=== PATIENT | female | born 1950 ===

== ENCOUNTER 2018-08-13 16:33 | Inpatient (IN) ==
[2018-08-13] MEDS ORDERED: MAGNESIUM HYDROXIDE SUSP 30 ML UDCUP PO PRN (18:01)
[2018-08-13] MEDS ORDERED: PROMETHAZINE 25 MG/1 ML VIAL IM PRN (18:01)
[2018-08-13] MEDS ORDERED: ACETAMINOPHEN 325 MG TABLET PO PRN ×2 (18:01)
[2018-08-13] MEDS ORDERED: NITROGLYCERIN SL 0.4 MG TABLET SL PRN (18:01)
[2018-08-13] MEDS ORDERED: POTASSIUM CHLORIDE 20 MEQ TABLET PO PRN ×2 (18:01)
[2018-08-13] MEDS ORDERED: MORPHINE 4 MG/1 ML VIAL IV PRN ×2 (18:01)
[2018-08-13] MEDS ORDERED: MAGNESIUM SULF RIDER 4 GM in PREMIX 1 EACH IV PRN (18:01)
[2018-08-13] MEDS ORDERED: NICOTINE 21 MG/24 HR PATCH TRANSDERM PRN (18:01)
[2018-08-13] MEDS ORDERED: oxyCODONE/ACETAMINOPHEN 5-325 MG TABLET PO PRN (18:01)
[2018-08-13] MEDS ORDERED: diphenhydrAMINE CAP 25 MG CAPSULE PO PRN (18:01)
[2018-08-13] MEDS ORDERED: MAGNESIUM SULF RIDER 2 GM in PREMIX 1 EACH IV PRN (18:01)
[2018-08-13] MEDS ORDERED: INSULIN REGULAR 100 UNIT/ML SUBCUT ONE (18:01)
[2018-08-13] MEDS ORDERED: traMADol 50 MG TABLET PO PRN (18:01)
[2018-08-13] MEDS ORDERED: BISACODYL 5 MG TABLET PO PRN (18:01)
[2018-08-13] MEDS ORDERED: guaiFENesin/DM ER 600-30 MG TABLET PO PRN (18:01)
[2018-08-13] MEDS ORDERED: ONDANSETRON 4 MG/2 ML VIAL IV PRN ×2 (18:01)
[2018-08-13] MEDS ORDERED: ALUM/MAG/SIMETH/LIDO VISC 1:1 30 ML BOTTLE PO PRN (18:01)
[2018-08-13] MEDS ORDERED: ZALEPLON 5 MG CAPSULE PO PRN (18:01)
[2018-08-13] MEDS ORDERED: DEXTROSE 50% 25 GM/50 ML VIAL IV PRN ×2 (18:27→20:48)
[2018-08-13] MEDS ORDERED: GLUCAGON 1 MG VIAL IM PRN ×2 (18:27→20:48)
[2018-08-13] MEDS ORDERED: SODIUM CHLORIDE 0.9% 1,000 ML IV SCH (18:30)
[2018-08-13] MEDS: SODIUM CHLORIDE 0.45% 1,000 ML IV SCH (18:32)
[2018-08-13] MEDS: INSULIN REGULAR 100 UNIT/ML SUBCUT SCH ×2 (18:41→23:35)
[2018-08-13] MEDS ORDERED: CLOPIDOGREL 75 MG TABLET PO ONE (18:55)
[2018-08-13] MEDS ORDERED: hydrALAZINE 20 MG/1 ML VIAL IV PRN (19:25)
[2018-08-13] MEDS ORDERED: CLOPIDOGREL 300 MG TABLET PO ONE (19:25)
[2018-08-13 19:31] LABS: Risk Ratio 6.04; Thyroid Stimulating Hormone 2.16 uIU/ml (0.358-3.74); VLDL CHOLESTEROL 36.6 MG/DL
[2018-08-13] MEDS ORDERED: ATORVASTATIN 20 MG TABLET PO SCH (21:00)
[2018-08-13] MEDS ORDERED: INSULIN GLARGINE 100 UNIT/ML SUBCUT SCH (21:00)
[2018-08-13] MEDS: cefTRIAXone 1,000 MG in SYRINGE 1 EACH IV SCH (21:16)
[2018-08-13] MEDS: ATORVASTATIN 80 MG TABLET PO SCH (21:17)
[2018-08-13] MEDS: hydrALAZINE 10 MG TABLET PO SCH (21:17)
[2018-08-13] MEDS: CARVEDILOL 3.125 MG TABLET PO SCH (21:17)
[2018-08-13] MEDS: FAMOTIDINE 20 MG TABLET PO SCH (21:17)
[2018-08-14 04:59] LABS: Basophils % 0.2 % (0.0-0.8); Eosinophils # 0.1 10*3/uL (0.0-0.87); Eosinophils % 1.5 % (0.00-10.9); Hematocrit 32.9 VOL% (35.7-47.0); Hemoglobin 11.1 GM/DL (12.0-16.0); Immature Granulocytes % 0.4 %; Immature Granulocytes Absolute 0.03 #; Lymphocytes # 0.8 10*3/uL (1.4-4.0); Lymphocytes % 9.1 % (21.3-54.2); Mean Corpuscular HGB Conc 33.7 GM/DL (32-36); Mean Corpuscular Volume 91.1 FL (87-102); Mean Platelet Volume 10.5 FL (9.6-12.0); Monocytes % 11.2 % (1.7-12.7); Neutrophils % 77.6 % (38.7-73.9); Platelet Count 303 T/CUMM (130-400); Red Blood Count 3.61 MC/CUMM (3.8-5.5); White Blood Count 8.2 T/CUMM (4-12)
[2018-08-14 05:03] LABS: Alanine Aminotransferase 16 U/L (13-56); Albumin 1.8 G/DL (3.4-5.0); Alkaline Phosphatase 99 U/L (45-117); Aspartate Amino Transferase 44 U/L (0-37); Bilirubin,Total < 0.39 MG/DL (0.2-1.0); Blood Urea Nitrogen 33 MG/DL (7-18); Calcium 7.9 MG/DL (8.5-10.1); Total Protein 5.6 G/DL (6.4-8.3)
[2018-08-14] MEDS: INSULIN REGULAR 100 UNIT/ML SUBCUT SCH ×4 (05:03→20:43)
[2018-08-14 05:23] LABS: Glucose 47 MG/DL (74-106)
[2018-08-14] MEDS: FAMOTIDINE 20 MG TABLET PO SCH ×2 (08:36→20:41)
[2018-08-14] MEDS: ASPIRIN EC 81 MG TABLET PO SCH (08:36)
[2018-08-14] MEDS: CLOPIDOGREL 75 MG TABLET PO SCH (08:36)
[2018-08-14] MEDS: SODIUM CHLORIDE 0.45% 1,000 ML IV SCH ×2 (08:36→20:40)
[2018-08-14] MEDS: ISOSORBIDE MONONITRATE 30 MG TABLET PO SCH (08:37)
[2018-08-14] MEDS: hydrALAZINE 10 MG TABLET PO SCH ×3 (08:37→20:42)
[2018-08-14] MEDS: CARVEDILOL 3.125 MG TABLET PO SCH ×2 (08:37→20:42)
[2018-08-14] MEDS: POTASSIUM CHLORIDE 20 MEQ TABLET PO SCH ×2 (10:03→20:42)
[2018-08-14 10:50] LABS: Apearance,Urine Slightly Hazy (Clear); Bacteria,Urine Occasional /HPF (Few); Bilirubin,Urine Negative (Negative); Blood, Urine Small mg/dL (Negative); Glucose,Urine (UA) >=500 mg/dL (Negative); Ketones,Urine Negative (Negative); Mucus,Urine Occasional /LPF (Occasional); Nitrite,Urine Negative (Negative); Protein,Urine 100 MG/DL; RBC,Urine 3 /HPF (0-4); Squamous Epithelial Cell,Urine Occasional /HPF (0-10); Urine Color Yellow (Yellow); Urine Specific Gravity 1.017 (1.001-1.035); Urine Urobilinogen < 2.0 EU/DL (0.2-1.0); WBC,Urine 99 /HPF (0-6)
[2018-08-14] MEDS ORDERED: GLUCAGON 1 MG VIAL IM PRN (14:44)
[2018-08-14] MEDS ORDERED: DEXTROSE 50% 25 GM/50 ML VIAL IV PRN (14:44)
[2018-08-14] MEDS: cefTRIAXone 1,000 MG in SYRINGE 1 EACH IV SCH (20:41)
[2018-08-14] MEDS: ATORVASTATIN 80 MG TABLET PO SCH (20:41)
[2018-08-15 04:36] LABS: Basophils % 0.2 % (0.0-0.8); Eosinophils % 0.3 % (0.00-10.9); Hematocrit 32.8 VOL% (35.7-47.0); Hemoglobin 10.6 GM/DL (12.0-16.0); Immature Granulocytes % 0.9 %; Immature Granulocytes Absolute 0.13 #; Lymphocytes # 0.7 10*3/uL (1.4-4.0); Lymphocytes % 5.1 % (21.3-54.2); Mean Corpuscular HGB Conc 32.3 GM/DL (32-36); Mean Platelet Volume 10.1 FL (9.6-12.0); Monocytes % 10.5 % (1.7-12.7); Platelet Count 297 T/CUMM (130-400); Red Blood Count 3.49 MC/CUMM (3.8-5.5); Red Cell Distribution Width 13.3 % (9.3-17.3); White Blood Count 14.4 T/CUMM (4-12)
[2018-08-15 05:01] LABS: Albumin 1.7 G/DL (3.4-5.0); Bilirubin,Total 0.4 MG/DL (0.2-1.0); Calcium 7.7 MG/DL (8.5-10.1); Osmolality,Calculated 280.7 MOS/KG (273-304); Total Protein 5.7 G/DL (6.4-8.3)
[2018-08-15] MEDS ORDERED: glipiZIDE 5 MG TABLET PO SCH (07:30)
[2018-08-15] MEDS: INSULIN REGULAR 100 UNIT/ML SUBCUT SCH ×4 (08:09→21:16)
[2018-08-15] MEDS: CLOPIDOGREL 75 MG TABLET PO SCH (09:08)
[2018-08-15] MEDS: CARVEDILOL 3.125 MG TABLET PO SCH ×2 (09:08→21:16)
[2018-08-15] MEDS: FAMOTIDINE 20 MG TABLET PO SCH ×2 (09:08→21:20)
[2018-08-15] MEDS: POTASSIUM CHLORIDE 20 MEQ TABLET PO SCH ×2 (09:08→21:19)
[2018-08-15] MEDS: ISOSORBIDE MONONITRATE 30 MG TABLET PO SCH (09:08)
[2018-08-15] MEDS: hydrALAZINE 10 MG TABLET PO SCH ×3 (09:08→21:16)
[2018-08-15] MEDS: ASPIRIN EC 81 MG TABLET PO SCH (09:09)
[2018-08-15] MEDS: SODIUM CHLORIDE 0.45% 1,000 ML IV SCH ×2 (09:57→23:56)
[2018-08-15] MEDS: ATORVASTATIN 80 MG TABLET PO SCH (21:20)
[2018-08-15] MEDS: cefTRIAXone 1,000 MG in SYRINGE 1 EACH IV SCH (21:20)
[2018-08-16 03:42] LABS: Basophils % 0.2 % (0.0-0.8); Eosinophils # 0.1 10*3/uL (0.0-0.87); Eosinophils % 0.8 % (0.00-10.9); Hematocrit 27.3 VOL% (35.7-47.0); Hemoglobin 8.7 GM/DL (12.0-16.0); Immature Granulocytes % 0.4 %; Immature Granulocytes Absolute 0.06 #; Lymphocytes # 1.4 10*3/uL (1.4-4.0); Lymphocytes % 10.2 % (21.3-54.2); Mean Corpuscular HGB Conc 31.9 GM/DL (32-36); Mean Corpuscular Volume 96.1 FL (87-102); Monocytes % 9.1 % (1.7-12.7); Neutrophils % 79.3 % (38.7-73.9); Platelet Count 266 T/CUMM (130-400); Red Blood Count 2.84 MC/CUMM (3.8-5.5); Red Cell Distribution Width 13.5 % (9.3-17.3); White Blood Count 13.7 T/CUMM (4-12)
[2018-08-16 04:02] LABS: Alanine Aminotransferase 13 U/L (13-56); Albumin 1.7 G/DL (3.4-5.0); Alkaline Phosphatase 109 U/L (45-117); Aspartate Amino Transferase 42 U/L (0-37); Bilirubin,Total < 0.39 MG/DL (0.2-1.0); Blood Urea Nitrogen 38 MG/DL (7-18); Calcium 7.6 MG/DL (8.5-10.1); Glucose 55 MG/DL (74-106); Osmolality,Calculated 279.8 MOS/KG (273-304); Total Protein 5.3 G/DL (6.4-8.3)
[2018-08-16] MEDS: INSULIN REGULAR 100 UNIT/ML SUBCUT SCH (07:38)
[2018-08-16] MEDS ORDERED: hydrALAZINE 10 MG TABLET PO SCH (09:00)
[2018-08-16] MEDS: ISOSORBIDE MONONITRATE 30 MG TABLET PO SCH (09:44)
[2018-08-16] MEDS: ASPIRIN EC 81 MG TABLET PO SCH (09:44)
[2018-08-16] MEDS: RIVAROXABAN 20 MG TABLET PO SCH (09:44)
[2018-08-16] MEDS: CARVEDILOL 3.125 MG TABLET PO SCH ×2 (09:45→21:47)
[2018-08-16] MEDS: FAMOTIDINE 20 MG TABLET PO SCH ×2 (09:45→21:33)
[2018-08-16] MEDS: POTASSIUM CHLORIDE 20 MEQ TABLET PO SCH ×2 (09:47→21:34)
[2018-08-16] MEDS: SODIUM CHLORIDE 0.45% 1,000 ML IV SCH (16:37)
[2018-08-16] MEDS: cefTRIAXone 1,000 MG in SYRINGE 1 EACH IV SCH (21:23)
[2018-08-16] MEDS: ATORVASTATIN 80 MG TABLET PO SCH (21:32)
[2018-08-17 04:42] LABS: Basophils % 0.5 % (0.0-0.8); Eosinophils # 0.2 10*3/uL (0.0-0.87); Eosinophils % 2.3 % (0.00-10.9); Hematocrit 27.7 VOL% (35.7-47.0); Hemoglobin 8.6 GM/DL (12.0-16.0); Immature Granulocytes % 0.5 %; Immature Granulocytes Absolute 0.04 #; Lymphocytes # 1.5 10*3/uL (1.4-4.0); Lymphocytes % 16.8 % (21.3-54.2); Mean Corpuscular Volume 98.9 FL (87-102); Mean Platelet Volume 10.3 FL (9.6-12.0); Monocytes % 9.1 % (1.7-12.7); Neutrophils % 70.8 % (38.7-73.9); Platelet Count 261 T/CUMM (130-400); Red Cell Distribution Width 13.4 % (9.3-17.3); White Blood Count 8.7 T/CUMM (4-12)
[2018-08-17 04:54] LABS: Alanine Aminotransferase 17 U/L (13-56); Albumin 1.5 G/DL (3.4-5.0); Alkaline Phosphatase 140 U/L (45-117); Aspartate Amino Transferase 44 U/L (0-37); Bilirubin,Total < 0.39 MG/DL (0.2-1.0); Blood Urea Nitrogen 39 MG/DL (7-18); Calcium 7.6 MG/DL (8.5-10.1); Glucose 115 MG/DL (74-106); Osmolality,Calculated 275.4 MOS/KG (273-304); Total Protein 5.4 G/DL (6.4-8.3)
[2018-08-17] MEDS ORDERED: SODIUM POLYSTYRENE SULFATE 15 GM/60 ML BOTTLE PO ONE (06:42)
[2018-08-17] MEDS: RIVAROXABAN 20 MG TABLET PO SCH (07:51)
[2018-08-17] MEDS: SODIUM CHLORIDE 0.45% 1,000 ML IV SCH (07:59)
[2018-08-17] MEDS: POTASSIUM CHLORIDE 20 MEQ TABLET PO SCH (09:23)
[2018-08-17] MEDS: CARVEDILOL 3.125 MG TABLET PO SCH ×2 (09:44→21:39)
[2018-08-17] MEDS: ISOSORBIDE MONONITRATE 30 MG TABLET PO SCH (09:44)
[2018-08-17] MEDS: ASPIRIN EC 81 MG TABLET PO SCH (09:44)
[2018-08-17] MEDS: FAMOTIDINE 20 MG TABLET PO SCH ×2 (09:44→21:39)
[2018-08-17] MEDS: SODIUM BICARB INJ 50 MEQ in DEXTROSE 5% NACL 0.45% 1,000 ML IV SCH ×2 (10:27→21:39)
[2018-08-17] MEDS: INSULIN REGULAR 100 UNIT/ML SUBCUT SCH (21:38)
[2018-08-17] MEDS: ATORVASTATIN 80 MG TABLET PO SCH (21:39)
[2018-08-18] MEDS: SODIUM BICARB INJ 50 MEQ in DEXTROSE 5% NACL 0.45% 1,000 ML IV SCH (07:00)
[2018-08-18] MEDS: INSULIN REGULAR 100 UNIT/ML SUBCUT SCH ×3 (09:10→16:55)
[2018-08-18] MEDS: ASPIRIN EC 81 MG TABLET PO SCH (09:10)
[2018-08-18] MEDS: FAMOTIDINE 20 MG TABLET PO SCH ×2 (09:11→20:55)
[2018-08-18] MEDS: CARVEDILOL 3.125 MG TABLET PO SCH ×2 (09:11→20:55)
[2018-08-18] MEDS: RIVAROXABAN 20 MG TABLET PO SCH (09:11)
[2018-08-18] MEDS: ISOSORBIDE MONONITRATE 30 MG TABLET PO SCH (09:11)
[2018-08-18 10:54] LABS: Calcium 7.4 MG/DL (8.5-10.1); Osmolality,Calculated 286.8 MOS/KG (273-304)
[2018-08-18] MEDS: ATORVASTATIN 80 MG TABLET PO SCH (20:55)
[2018-08-19] MEDS: INSULIN REGULAR 100 UNIT/ML SUBCUT SCH ×5 (00:17→21:48)
[2018-08-19] MEDS: SODIUM BICARB INJ 50 MEQ in DEXTROSE 5% NACL 0.45% 1,000 ML IV SCH ×2 (00:31→15:47)
[2018-08-19] MEDS ORDERED: ZIPRASIDONE 20 MG/1 ML VIAL IM ONE (00:32)
[2018-08-19 05:21] LABS: Basophils % 0.4 % (0.0-0.8); Eosinophils # 0.1 10*3/uL (0.0-0.87); Eosinophils % 1.6 % (0.00-10.9); Hematocrit 27.6 VOL% (35.7-47.0); Immature Granulocytes % 0.5 %; Immature Granulocytes Absolute 0.04 #; Lymphocytes # 1.2 10*3/uL (1.4-4.0); Lymphocytes % 15.7 % (21.3-54.2); Mean Corpuscular HGB Conc 32.6 GM/DL (32-36); Mean Corpuscular Volume 95.2 FL (87-102); Neutrophils % 70.8 % (38.7-73.9); Platelet Count 364 T/CUMM (130-400); White Blood Count 7.5 T/CUMM (4-12)
[2018-08-19 05:31] LABS: Calcium 7.7 MG/DL (8.5-10.1); Calcium 7.8 MG/DL (8.5-10.1); Osmolality,Calculated 285.7 MOS/KG (273-304)
[2018-08-19] MEDS ORDERED: glipiZIDE 5 MG TABLET PO SCH (09:00)
[2018-08-19] MEDS ORDERED: GLIMEPIRIDE 2 MG TABLET PO SCH (09:00)
[2018-08-19] MEDS: ASPIRIN EC 81 MG TABLET PO SCH (09:17)
[2018-08-19] MEDS: RIVAROXABAN 20 MG TABLET PO SCH (09:18)
[2018-08-19] MEDS: CARVEDILOL 3.125 MG TABLET PO SCH ×2 (09:18→21:46)
[2018-08-19] MEDS: ISOSORBIDE MONONITRATE 30 MG TABLET PO SCH (09:18)
[2018-08-19] MEDS: FAMOTIDINE 20 MG TABLET PO SCH (09:18)
[2018-08-19] MEDS: CYPROHEPTADINE 4 MG TABLET PO SCH ×2 (12:14→21:46)
[2018-08-19] MEDS: COENZYME Q10 100 MG CAPSULE PO SCH ×2 (12:14→21:48)
[2018-08-19] MEDS: ATORVASTATIN 80 MG TABLET PO SCH (21:46)
[2018-08-20 06:39] LABS: Calcium 7.5 MG/DL (8.5-10.1); Osmolality,Calculated 287.3 MOS/KG (273-304)
[2018-08-20] MEDS: INSULIN REGULAR 100 UNIT/ML SUBCUT SCH ×4 (08:36→22:44)
[2018-08-20] MEDS: RIVAROXABAN 20 MG TABLET PO SCH (09:05)
[2018-08-20] MEDS: ASPIRIN EC 81 MG TABLET PO SCH (09:05)
[2018-08-20] MEDS: COENZYME Q10 100 MG CAPSULE PO SCH ×2 (09:05→22:44)
[2018-08-20] MEDS: CYPROHEPTADINE 4 MG TABLET PO SCH ×2 (09:05→22:44)
[2018-08-20] MEDS: CARVEDILOL 3.125 MG TABLET PO SCH ×2 (09:06→22:44)
[2018-08-20] MEDS: ISOSORBIDE MONONITRATE 30 MG TABLET PO SCH (09:06)
[2018-08-20] MEDS: FAMOTIDINE 20 MG TABLET PO SCH (09:06)
[2018-08-20] MEDS: ATORVASTATIN 80 MG TABLET PO SCH (22:44)
[2018-08-21] MEDS: INSULIN REGULAR 100 UNIT/ML SUBCUT SCH ×4 (08:23→21:11)
[2018-08-21] MEDS: COENZYME Q10 100 MG CAPSULE PO SCH ×2 (08:32→21:08)
[2018-08-21] MEDS: ASPIRIN EC 81 MG TABLET PO SCH (08:32)
[2018-08-21] MEDS: CARVEDILOL 3.125 MG TABLET PO SCH ×2 (08:32→21:08)
[2018-08-21] MEDS: FAMOTIDINE 20 MG TABLET PO SCH (08:32)
[2018-08-21] MEDS: CYPROHEPTADINE 4 MG TABLET PO SCH ×2 (08:32→21:08)
[2018-08-21] MEDS: ISOSORBIDE MONONITRATE 30 MG TABLET PO SCH (08:32)
[2018-08-21] MEDS: RIVAROXABAN 20 MG TABLET PO SCH (08:32)
[2018-08-21] MEDS: ATORVASTATIN 80 MG TABLET PO SCH (21:08)
[2018-08-22 04:35] LABS: Calcium 7.6 MG/DL (8.5-10.1); Osmolality,Calculated 289.4 MOS/KG (273-304)
[2018-08-22] MEDS: ISOSORBIDE MONONITRATE 30 MG TABLET PO SCH (09:57)
[2018-08-22] MEDS: RIVAROXABAN 20 MG TABLET PO SCH (09:57)
[2018-08-22] MEDS: COENZYME Q10 100 MG CAPSULE PO SCH (09:57)
[2018-08-22] MEDS: ASPIRIN EC 81 MG TABLET PO SCH (09:57)
[2018-08-22] MEDS: CYPROHEPTADINE 4 MG TABLET PO SCH (09:57)
[2018-08-22] MEDS: FAMOTIDINE 20 MG TABLET PO SCH (09:57)
[2018-08-22] MEDS: CARVEDILOL 3.125 MG TABLET PO SCH (09:57)
[2018-08-22] MEDS: INSULIN REGULAR 100 UNIT/ML SUBCUT SCH ×2 (09:58→12:09)
[2018-08-22 12:29] VITALS: BP 104/58
== END 2018-08-22 12:50 | DRG 64 ==
LOC: N.TELES 17:44 → SUATTDRO 17:44
PROVIDERS: ADMIT Internal Medicine; ATTEND Internal Medicine

== ENCOUNTER 2018-10-04 13:30 | Inpatient (IN) ==
[2018-10-04] MEDS ORDERED: LACTULOSE 20 GM/30 ML UDCUP PO PRN (20:34)
[2018-10-04] MEDS ORDERED: ONDANSETRON 4 MG/2 ML VIAL IV PRN (20:34)
[2018-10-04] MEDS ORDERED: ZALEPLON 5 MG CAPSULE PO PRN (20:34)
[2018-10-04] MEDS ORDERED: ACETAMINOPHEN 325 MG TABLET PO PRN (20:34)
[2018-10-04] MEDS ORDERED: BISACODYL 5 MG TABLET PO PRN (20:34)
[2018-10-04 20:36] LABS: Basophils % 0.3 % (0.0-0.8); Eosinophils # 0.1 10*3/uL (0.0-0.87); Eosinophils % 1.4 % (0.00-10.9); Hematocrit 29.5 VOL% (35.7-47.0); Hemoglobin 9.7 GM/DL (12.0-16.0); Immature Granulocytes % 0.4 %; Immature Granulocytes Absolute 0.03 #; Lymphocytes # 1.2 10*3/uL (1.4-4.0); Lymphocytes % 16.9 % (21.3-54.2); Mean Corpuscular HGB Conc 32.9 GM/DL (32-36); Mean Corpuscular Volume 93.7 FL (87-102); Mean Platelet Volume 10.1 FL (9.6-12.0); Monocytes % 8.5 % (1.7-12.7); Neutrophils % 72.5 % (38.7-73.9); Platelet Count 246 T/CUMM (130-400); Red Blood Count 3.15 MC/CUMM (3.8-5.5); Red Cell Distribution Width 15.9 % (9.3-17.3); White Blood Count 7.3 T/CUMM (4-12)
[2018-10-04 21:04] LABS: Calcium 7.8 MG/DL (8.5-10.1); Osmolality,Calculated 292.6 MOS/KG (273-304)
[2018-10-04] MEDS: SODIUM CHLORIDE 0.9% 1,000 ML IV SCH (21:17)
[2018-10-04] MEDS: CYPROHEPTADINE 4 MG TABLET PO SCH (22:21)
[2018-10-04] MEDS: CARVEDILOL 3.125 MG TABLET PO SCH (22:21)
[2018-10-04] MEDS: ATORVASTATIN 80 MG TABLET PO SCH (22:21)
[2018-10-05] MEDS: COENZYME Q10 100 MG CAPSULE PO SCH ×3 (00:01→22:43)
[2018-10-05] MEDS ORDERED: POTASSIUM CHLORIDE 20 MEQ TABLET PO ONE (06:06)
[2018-10-05 06:43] LABS: Basophils % 0.3 % (0.0-0.8); Eosinophils # 0.2 10*3/uL (0.0-0.87); Hematocrit 29.5 VOL% (35.7-47.0); Hemoglobin 9.5 GM/DL (12.0-16.0); Immature Granulocytes % 0.2 %; Immature Granulocytes Absolute 0.01 #; Lymphocytes % 29.4 % (21.3-54.2); Mean Corpuscular HGB Conc 32.2 GM/DL (32-36); Mean Corpuscular Volume 93.7 FL (87-102); Mean Platelet Volume 10.1 FL (9.6-12.0); Monocytes % 10.8 % (1.7-12.7); Neutrophils % 56.3 % (38.7-73.9); Platelet Count 241 T/CUMM (130-400); Red Blood Count 3.15 MC/CUMM (3.8-5.5); Red Cell Distribution Width 15.9 % (9.3-17.3); White Blood Count 6.7 T/CUMM (4-12)
[2018-10-05 07:06] LABS: Calcium 7.9 MG/DL (8.5-10.1); Osmolality,Calculated 291.4 MOS/KG (273-304)
[2018-10-05] MEDS: CARVEDILOL 3.125 MG TABLET PO SCH ×2 (08:33→16:38)
[2018-10-05] MEDS: FAMOTIDINE 20 MG TABLET PO SCH (08:33)
[2018-10-05] MEDS: ASPIRIN EC 81 MG TABLET PO SCH (08:34)
[2018-10-05] MEDS: CYPROHEPTADINE 4 MG TABLET PO SCH ×2 (08:34→22:43)
[2018-10-05] MEDS ORDERED: POTASSIUM CHLORIDE 20 MEQ TABLET PO SCH ×2 (09:00→21:00)
[2018-10-05] MEDS ORDERED: ISOSORBIDE MONONITRATE 30 MG TABLET PO SCH (09:00)
[2018-10-05] MEDS ORDERED: diphenhydrAMINE CAP 25 MG CAPSULE PO ONE (10:06)
[2018-10-05] MEDS ORDERED: DIAZEPAM 5 MG TABLET PO ONE (10:06)
[2018-10-05] MEDS ORDERED: POTASSIUM CHLORIDE RIDER 10 MEQ in PREMIX 1 EACH IV PRN (10:06)
[2018-10-05] MEDS ORDERED: LIDOCAINE 1% 20 ML VIAL ONE (10:28)
[2018-10-05] MEDS ORDERED: HEPARIN/NACL 0.9% 2 UNITS/ML 1,000 ML IV ONE (10:28)
[2018-10-05] MEDS: SODIUM CHLORIDE 0.9% 1,000 ML IV SCH (10:29)
[2018-10-05] MEDS: POTASSIUM CHLORIDE RIDER 10 MEQ in PREMIX 1 EACH IV SCH ×2 (10:30→12:31)
[2018-10-05] MEDS ORDERED: MIDAZOLAM 2 MG/2 ML VIAL ONE (10:55)
[2018-10-05] MEDS ORDERED: fentaNYL 100 MCG/2 ML VIAL ONE (10:55)
[2018-10-05] MEDS ORDERED: BIVALIRUDIN 250 MG VIAL IV ONE (11:16)
[2018-10-05] MEDS ORDERED: NITROGLYCERIN DRIP 0 MG/0 ML BOTTLE IV ONE (11:39)
[2018-10-05] MEDS ORDERED: NITROGLYCERIN DRIP 50 MG/250 ML BOTTLE IV ONE (11:40)
[2018-10-05] MEDS ORDERED: HEPARIN/NACL 0.9% 2 UNITS/ML 500 ML IV ONE (11:51)
[2018-10-05] MEDS ORDERED: TICAGRELOR 90 MG TABLET ONE (12:16)
[2018-10-05] MEDS ORDERED: DEXTROSE 50% 25 GM/50 ML VIAL IV PRN (12:20)
[2018-10-05] MEDS ORDERED: GLUCAGON 1 MG VIAL IM PRN (12:20)
[2018-10-05] MEDS ORDERED: NITROGLYCERIN SL 0.4 MG TABLET SL PRN (12:21)
[2018-10-05] MEDS ORDERED: POTASSIUM CHLORIDE RIDER 100 ML IV ONE (12:27)
[2018-10-05] MEDS: INSULIN LISPRO 100 UNIT/ML SUBCUT SCH ×2 (16:37→22:44)
[2018-10-05] MEDS ORDERED: hydrALAZINE 20 MG/1 ML VIAL IV PRN (16:39)
[2018-10-05] MEDS ORDERED: POTASSIUM CHLORIDE 10 MEQ TABLET PO SCH (22:30)
[2018-10-05] MEDS: hydrALAZINE 25 MG TABLET PO SCH (22:42)
[2018-10-05] MEDS: TICAGRELOR 90 MG TABLET PO SCH (22:43)
[2018-10-05] MEDS: ATORVASTATIN 80 MG TABLET PO SCH (22:43)
[2018-10-05] MEDS: MAGNESIUM OXIDE 400 MG TABLET PO SCH (22:43)
[2018-10-06 06:19] LABS: Basophils % 0.2 % (0.0-0.8); Eosinophils # 0.1 10*3/uL (0.0-0.87); Eosinophils % 1.6 % (0.00-10.9); Hemoglobin 8.7 GM/DL (12.0-16.0); Immature Granulocytes % 0.5 %; Immature Granulocytes Absolute 0.04 #; Lymphocytes # 0.6 10*3/uL (1.4-4.0); Lymphocytes % 7.1 % (21.3-54.2); Mean Corpuscular HGB Conc 32.2 GM/DL (32-36); Mean Corpuscular Volume 94.4 FL (87-102); Mean Platelet Volume 9.9 FL (9.6-12.0); Monocytes % 6.4 % (1.7-12.7); Neutrophils % 84.2 % (38.7-73.9); Platelet Count 213 T/CUMM (130-400); Red Blood Count 2.86 MC/CUMM (3.8-5.5); White Blood Count 8.9 T/CUMM (4-12)
[2018-10-06 06:50] LABS: Calcium 7.4 MG/DL (8.5-10.1); Osmolality,Calculated 291.4 MOS/KG (273-304)
[2018-10-06] MEDS: SODIUM CHLORIDE 0.9% 1,000 ML IV SCH (08:08)
[2018-10-06] MEDS: MAGNESIUM SULF RIDER 2 GM in PREMIX 1 EACH IV PRN (08:37)
[2018-10-06] MEDS: POTASSIUM CHLORIDE 20 MEQ TABLET PO SCH ×2 (09:49→18:08)
[2018-10-06] MEDS: INSULIN LISPRO 100 UNIT/ML SUBCUT SCH ×3 (09:49→16:43)
[2018-10-06] MEDS: SPIRONOLACTONE 25 MG TABLET PO SCH (09:50)
[2018-10-06] MEDS: COENZYME Q10 100 MG CAPSULE PO SCH ×2 (09:50→21:07)
[2018-10-06] MEDS: ASPIRIN EC 81 MG TABLET PO SCH (09:50)
[2018-10-06] MEDS: CYPROHEPTADINE 4 MG TABLET PO SCH ×2 (09:51→21:07)
[2018-10-06] MEDS: MAGNESIUM OXIDE 400 MG TABLET PO SCH ×2 (09:51→21:07)
[2018-10-06] MEDS: hydrALAZINE 25 MG TABLET PO SCH (09:51)
[2018-10-06] MEDS: TICAGRELOR 90 MG TABLET PO SCH ×2 (09:51→21:07)
[2018-10-06] MEDS: FAMOTIDINE 20 MG TABLET PO SCH (09:51)
[2018-10-06] MEDS: CARVEDILOL 3.125 MG TABLET PO SCH ×2 (09:51→18:08)
[2018-10-06] MEDS: ATORVASTATIN 80 MG TABLET PO SCH (21:07)
[2018-10-06] MEDS: POTASSIUM CHLORIDE 10 MEQ TABLET PO SCH (21:08)
[2018-10-07] MEDS: hydrALAZINE 25 MG TABLET PO SCH ×2 (07:56→10:01)
[2018-10-07] MEDS: INSULIN LISPRO 100 UNIT/ML SUBCUT SCH ×3 (07:56→12:33)
[2018-10-07 08:48] LABS: Basophils % 0.3 % (0.0-0.8); Eosinophils # 0.3 10*3/uL (0.0-0.87); Eosinophils % 3.5 % (0.00-10.9); Hematocrit 25.8 VOL% (35.7-47.0); Hemoglobin 8.4 GM/DL (12.0-16.0); Immature Granulocytes % 0.3 %; Immature Granulocytes Absolute 0.02 #; Lymphocytes # 0.9 10*3/uL (1.4-4.0); Lymphocytes % 10.8 % (21.3-54.2); Mean Corpuscular HGB Conc 32.6 GM/DL (32-36); Mean Corpuscular Volume 95.6 FL (87-102); Mean Platelet Volume 10.1 FL (9.6-12.0); Monocytes % 9.6 % (1.7-12.7); Neutrophils % 75.5 % (38.7-73.9); Platelet Count 206 T/CUMM (130-400); Red Cell Distribution Width 16.4 % (9.3-17.3)
[2018-10-07 09:07] LABS: Calcium 7.3 MG/DL (8.5-10.1); Osmolality,Calculated 288.7 MOS/KG (273-304)
[2018-10-07] MEDS: CARVEDILOL 3.125 MG TABLET PO SCH (09:58)
[2018-10-07] MEDS: FAMOTIDINE 20 MG TABLET PO SCH (09:58)
[2018-10-07] MEDS: MAGNESIUM OXIDE 400 MG TABLET PO SCH (09:59)
[2018-10-07] MEDS: COENZYME Q10 100 MG CAPSULE PO SCH (09:59)
[2018-10-07] MEDS: SPIRONOLACTONE 25 MG TABLET PO SCH (09:59)
[2018-10-07] MEDS: CYPROHEPTADINE 4 MG TABLET PO SCH (10:00)
[2018-10-07] MEDS: POTASSIUM CHLORIDE 10 MEQ TABLET PO SCH (10:00)
[2018-10-07] MEDS: ASPIRIN EC 81 MG TABLET PO SCH (10:01)
[2018-10-07] MEDS: TICAGRELOR 90 MG TABLET PO SCH (10:01)
[2018-10-07] MEDS: MAGNESIUM SULF RIDER 2 GM in PREMIX 1 EACH IV PRN (10:20)
[2018-10-07 12:23] VITALS: BP 121/64
== END 2018-10-07 15:15 | disposition home health service (06) | DRG 247 ==
LOC: N.CL 19:14 → N.2E 19:14 → N.SDSINP 19:14 → N.2E 19:19 → EDSTATUS 10-05 10:30 → N.TELEN 10-05 13:14 → N.CL 10-05 13:14 → N.TELEN 10-05 14:03
PROVIDERS: ADMIT Internal Medicine Cardiovascular Disease; ATTEND Internal Medicine Cardiovascular Disease
PROC: CLCCHCL (ICD-10-PCS; 2018-10-05 10:45)